=== PATIENT | male | born 1985 | race Caucasian/White ===

== ENCOUNTER 2019-01-01 19:53 | Emergency (ER) | payer SELFPAY ==
[2019-01-01 20:01] VITALS: BP 130/69; PULSE 90; RESP 20; TEMP 39.1; O2SAT 99
--- NOTE | 2019-01-01 20:19 | W.ED.GENAD ---
Discharge Plan Disposition Patient Disposition: HOME Condition: Stable Discharge Details Chief Complaint: Cellulitis Clinical Impression: Abscess of right forearm Primary Care Provider: Junior Nowak ED Provider: Martin Dallas Discharge Instructions Instructions: Abscess (ED) Additional Instructions: Return to the emergency department if you have redness spreading up to the upper arm, shortness of breath or abdominal pain return to the emergency department follow up with your primary care provider within a week Stand Alone Forms: Work Release Medical Decision Making 33 yo male with hx of drug abuse who states he has used 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 He was not aware of fevers but is febrile here, otherwise stable. His forearm diffusely is warm to touch and has a lesion where he injected that is firm and 2x2cm , no visible abscess on bedside u/s. Given IVDU and pain will obtain ct to eval for possible nec fasc or deep abscess pt's labs showed elevated wbc count, elevated lactate of 2.3, hd stable, remains febrile. CT shows larege abscess that is 5cm with diffuse forearm cellulitis. Ceftriaxone and vanco ordered for sepsis due to cellulitis. We have no beds here. Will contact surrounding hospitals I drained the abscess with return of significant purulent material. [place] has no beds, [facility] has no beds, [facility] transfer center called and they have no beds at any of their hopsitals and [facility] [place] beds. will try [facility]. HE remains HD stable Patient is not willing to go for transfer for IV abx and wants to go home. He has capacity to make his own decisions and understands the risks of worsening infection, loss of limb, and possible and disability, and is willing to accept these risks. He has no insurance so I am going to provide him with 5 days of oral abx and advised he should f/u with his pcp and return if he changes mind or is worsening in any way Differential Diagnosis nec fasc, abscess, cellulitis Imaging Data Radiologic Study: Attestation: I personally reviewed and interpreted this imaging study as follows: Imaging: CT Scan Radiologist's impression: IMPRESSION: Large abscess, measuring up to 5 cm, in the dorsal subcutaneous tissues of the distal forearm just posterior to the wrist, with associated diffuse forearm cellulitis. Lab Data Lab results reviewed: Yes I reviewed the patient's lab results. HPI General Mode of arrival: ambulatory. Date/Time Provider Initiated Documentation: 01/01/19 20:09. Limitations to Documentation: no limitations. Information obtained by: patient. History of Present Illness 33 year old M presents to the emergency department with the chief complaint of right arm redness, described as moderate, with intensity rated at 4. Patient started experiencing this day(s) (5) No relieving factors improve symptom(s), No exacerbating factors reported . Related Data Allergies Allergy/AdvReac Type Severity Reaction Status Date / Time No Known Allergies Allergy Unverified 01/01/19 20:08 General Stated Complaint: Cellulitis CUONG: 3 Review of Systems Review of Systems All systems reviewed & are unremarkable except as noted in HPI and below Constitutional Denies chills, Denies fever(s) and Denies weakness Cardiovascular Denies chest pain and Denies dyspnea Respiratory Denies cough and Denies dyspnea Gastrointestinal Denies abdominal pain, Denies nausea and Denies vomiting Neurologic Denies weakness [facility] Social History Smoking and Tabacco status: Current every day Exam Const General: no acute distress Orientation: alert HENMT Head: normal to inspection Ears: external ears normal General nose exam: external nose normal Mouth: moist mucous membranes Eyes General: appearance normal, both eyes and all related structures Neck Neck: normal visual inspection Resp Effort & Inspection: normal respiratory effort and able to speak in complete sentences Cardio Rate: regular rate Neuro General: alert and oriented x3 Extrem General: normal capillary refill Psych Mental Status: mental status grossly normal Course Vital Signs Temperature 39.1 C H 01/01/19 20:01 Pulse 90 01/01/19 20:01 Respiratory Rate 20 01/01/19 20:01 Blood Pressure 130/69 01/01/19 20:01 Pulse Oximetry 99 01/01/19 20:01 Temperature 39.1 C H 01/01/19 20:01 Temperature Source Temporal Artery Scan 01/01/19 20:01 Pulse 90 01/01/19 20:01 Respiratory Rate 20 01/01/19 20:01 Respiratory Effort 01/01/19 20:01 Blood Pressure 130/69 01/01/19 20:01 Blood Pressure Position Sitting 01/01/19 20:01 Pulse Oximetry 99 01/01/19 20:01 Oxygen Delivery Method Room Air 01/01/19 20:01 Oxygen Flow Rate 0 01/01/19 20:01 Pain Level 9 01/01/19 20:01 Lab/Test Results Lab/Test Results: 01/01/19 20:16 Blood Blood Culture - Pending 01/01/19 20:16 Blood Blood Culture - Pending Procedures Abscess I/D Site: Upper Extremity Side (if applicable): Right Local Anesthetic: Lidocaine 1% Amount of anesthesia used (mL): 7 (cc) Technique: Incised with #11 Blade Amount of fluid expressed (mL): 20 (cc) Irrigation: Yes Packing used?: None Complications: Pain
--- NOTE | 2019-01-01 20:23 | ED.GENADUL_ITS ---
Discharge Plan Disposition Patient Disposition: HOME Condition: Stable Discharge Details Chief Complaint: Cellulitis Clinical Impression: Abscess of right forearm Primary Care Provider: Junior Nowak ED Provider: Martin Dallas Discharge Instructions Instructions: Abscess (ED) Additional Instructions: Return to the emergency department if you have redness spreading up to the upper arm, shortness of breath or abdominal pain return to the emergency department follow up with your primary care provider within a week Stand Alone Forms: Work Release Medical Decision Making 33 yo male with hx of drug abuse who states he has used 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 He was not aware of fevers but is febrile here, otherwise stable. His forearm diffusely is warm to touch and has a lesion where he injected that is firm and 2x2cm , no visible abscess on bedside u/s. Given IVDU and pain will obtain ct to eval for possible nec fasc or deep abscess pt's labs showed elevated wbc count, elevated lactate of 2.3, hd stable, remains febrile. CT shows larege abscess that is 5cm with diffuse forearm cellulitis. Ceftriaxone and vanco ordered for sepsis due to cellulitis. We have no beds here. Will contact surrounding hospitals I drained the abscess with return of significant purulent material. [place] has no beds, [facility] has no beds, [facility] transfer center called and they have no beds at any of their hopsitals and [facility] has no beds. will try [facility]. HE remains HD stable Patient is not willing to go for transfer for IV abx and wants to go home. He has capacity to make his own decisions and understands the risks of worsening infection, loss of limb, and possible and disability, and is willing to accept these risks. He has no insurance so I am going to provide him with 5 days of oral abx and advised he should f/u with his pcp and return if he changes mind or is worsening in any way Differential Diagnosis nec fasc, abscess, cellulitis Imaging Data Radiologic Study: Attestation: I personally reviewed and interpreted this imaging study as follows: Imaging: CT Scan Radiologist's impression: IMPRESSION: Large abscess, measuring up to 5 cm, in the dorsal subcutaneous tissues of the distal forearm just posterior to the wrist, with associated diffuse forearm cellulitis. Lab Data Lab results reviewed: Yes I reviewed the patient's lab results. HPI General Mode of arrival: ambulatory . Date/Time Provider Initiated Documentation: 01/01/19 20:09 . Limitations to Documentation: no limitations . Information obtained by: patient . History of Present Illness 33 year old M presents to the emergency department with the chief complaint of right arm redness, described as moderate, with intensity rated at 4. Patient started experiencing this day(s) (5) No relieving factors improve symptom(s), No exacerbating factors reported . Related Data Allergies Allergy/AdvReac Type Severity Reaction Status Date / Time No Known Allergies Allergy Unverified 01/01/19 20:08 General Stated Complaint: Cellulitis CUONG: 3 Review of Systems Review of Systems All systems reviewed & are unremarkable except as noted in HPI and below Constitutional Denies chills, Denies fever(s) and Denies weakness Cardiovascular Denies chest pain and Denies dyspnea Respiratory Denies cough and Denies dyspnea Gastrointestinal Denies abdominal pain, Denies nausea and Denies vomiting Neurologic Denies weakness [facility] Social History Smoking and Tabacco status: Current every day Exam Const General: no acute distress Orientation: alert HENMT Head: normal to inspection Ears: external ears normal General nose exam: external nose normal Mouth: moist mucous membranes Eyes General: appearance normal, both eyes and all related structures Neck Neck: normal visual inspection Resp Effort & Inspection: normal respiratory effort and able to speak in complete sentences Cardio Rate: regular rate Neuro General: alert and oriented x3 Extrem General: normal capillary refill Psych Mental Status: mental status grossly normal Course Vital Signs Temperature 39.1 C H 01/01/19 20:01 Pulse 90 01/01/19 20:01 Respiratory Rate 20 01/01/19 20:01 Blood Pressure 130/69 01/01/19 20:01 Pulse Oximetry 99 01/01/19 20:01 Temperature 39.1 C H 01/01/19 20:01 Temperature Source Temporal Artery Scan 01/01/19 20:01 Pulse 90 01/01/19 20:01 Respiratory Rate 20 01/01/19 20:01 Respiratory Effort 01/01/19 20:01 Blood Pressure 130/69 01/01/19 20:01 Blood Pressure Position Sitting 01/01/19 20:01 Pulse Oximetry 99 01/01/19 20:01 Oxygen Delivery Method Room Air 01/01/19 20:01 Oxygen Flow Rate 0 01/01/19 20:01 Pain Level 9 01/01/19 20:01 Lab/Test Results Lab/Test Results: 01/01/19 20:16 Blood Blood Culture - Pending 01/01/19 20:16 Blood Blood Culture - Pending Procedures Abscess I/D Site: Upper Extremity Side (if applicable): Right Local Anesthetic: Lidocaine 1% Amount of anesthesia used (mL): 7 (cc) Technique: Incised with #11 Blade Amount of fluid expressed (mL): 20 (cc) Irrigation: Yes Packing used?: None Complications: Pain
[2019-01-01] MEDS: Normal Saline 1,000 ML 1000 ML IV (20:50)
[2019-01-01] MEDS: Normal Saline Flush 10 ML SYR IVP (20:50)
[2019-01-01 21:04] LABS: Abs Immature Grans 0.02 k/cumm (0.0-0.09); Absolute Basophil Count 0.02 k/cumm (0.0-0.2); Absolute Neutrophil Count 12.78 k/cumm (1.2-6.7); Basophils % 0.1; Eosinophils % 0.8; HCT 40.2 % (40.0-50.0); HGB 13.5 g/dL (13.5-17.5); Immature Grans % 0.1; Lymphocytes % 12.5; Mean Corp. HGB Concentration 33.6 g/dL (32.0-36.0); Mean Corpuscular Hemoglobin 29.3 pg (27.0-33.0); Mean Corpuscular Volume 87.2 fL (80-95); Mean Platelet Volume 11.6 fL (8.0-11.0); Monocytes % 6.6; Neutrophils % 79.9; Platelet Count 209 x1000/uL (130-400); RBC 4.61 m/cumm (4.50-6.00); White Blood Cell Count 15.99 k/cumm (4.4-10.8)
[2019-01-01 21:05] LABS: Lactate-non-spesis 2.3 mmol/l (0.6-1.4)
[2019-01-01 21:06] LABS: Absolute Eosinophil Count 0.13 k/cumm (0.0-0.7); Absolute Monocyte Count 1.06 k/cumm (0.11-0.7)
[2019-01-01] MEDS: Omnipaque 350 MG/ML 100 ML BTL IJ (21:13)
--- NOTE | 2019-01-01 21:15 | DI.CT_ITS ---
SYMPTOM/DIAGNOSIS: RIGHT ARM CELLULITIS, ? ABSCESS OR FREE AIR CT RIGHT UPPER EXTREMITY: CT scan of the right upper extremity was performed following the uneventful administration of intravenous contrast material. There is a 5 x 2.5 x 2.7 cm fluid collection in the subcutaneous tissues in the distal forearm just proximal to the wrist. There is an enhancing wall noted. This is most consistent with an abscess. The abscess lies superficial to the underlying musculature. The underlying musculature does not appear to be involved. There is also edema seen in the subcutaneous tissues predominantly in the dorsal and medial forearm extending proximally to about the mid upper arm. No other focal fluid collection is seen in the right upper extremity. The bones appear unremarkable. No radiographic findings to suggest osteomyelitis. No acute vascular abnormalities identified. IMPRESSION: 5 cm abscess on the dorsum of the distal forearm just proximal to the wrist. 2. Right upper extremity cellulitis
[2019-01-01 21:16] LABS: ALT 136 U/L (12-78); AST 46 U/L (15-37); Albumin 3.1 g/dL (3.4-5.0); Alkaline Phosphatase 100 U/L (46-116); Anion Gap 9.4 mmol/L (3-11); BUN 9 mg/dL (7-18); Bilirubin, Direct 0.18 mg/dL (0.00-0.20); Bilirubin, Total 0.5 mg/dL (0.2-1.0); CO2 27.6 mmol/L (21.0-32.0); CREATININE 0.87 mg/dL (0.70-1.30); Calcium 8.7 mg/dL (8.5-10.1); Chloride 97 mmol/L (98-107); Glucose 138 mg/dL (70-100); Magnesium 1.7 mg/dL (1.8-2.4); Potassium 3.5 mmol/L (3.5-5.1); Sodium 134 mmol/L (136-145)
[2019-01-01] MEDS: Ketorolac 15 MG/ML VIAL IVP (21:37)
[2019-01-01 21:45] VITALS: TEMP 39.3
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
[2019-01-01] MEDS: HYDROmorphone 2 MG/ML VIAL (22:23)
[2019-01-01] MEDS: VANCOMYCIN 1,000 MG in Normal Saline 250 ML 166.6666 MG IVPB (22:23)
[2019-01-01] MEDS: Sulfameth/Trimeth DS TAB 10 TAB PO (23:01)
[2019-01-01] MEDS: Amoxicillin 875/Clav. 125 TAB 10 TAB PO (23:01)
[2019-01-02 03:10] VITALS: BP 128/70; PULSE 92; RESP 18; TEMP 39; O2SAT 99
== END 2019-01-01 23:05 | disposition left against medical advice (07) ==
PROVIDERS: Emergency Provider Emergency Medicine; PCP Family Medicine
DX: L02.413 Cutaneous abscess of right upper limb (principal); L03.113 Cellulitis of right upper limb; S51.831A Puncture wound without foreign body of right forearm, initial encounter; W46.0XXA Contact with hypodermic needle, initial encounter; F11.10 Opioid abuse, uncomplicated
CPT/HCPCS: 10060; 36415; 80053; 80076; 87040; 87077; 96361; 96365; 96367; 96375; 99285; 73201; 83605; 83735; 85025; 87070; 87205; 99284; J1885; J3490

== ENCOUNTER 2019-06-08 11:45 | Emergency (ER) | payer MEDICAID, SELFPAY ==
[2019-06-08 11:50] VITALS: BP 149/102; PULSE 86; RESP 18; TEMP 37.1; O2SAT 99
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
[2019-06-08] MEDS: Cephalexin 500 MG CAP PO (13:18)
[2019-06-08 13:44] VITALS: BP 138/96; PULSE 78; RESP 18; TEMP 37.1; O2SAT 99
== END 2019-06-08 13:45 | disposition home or self-care (01) ==
PROVIDERS: Emergency Provider Physician Assistant; PCP Family Medicine
DX: L55.1 Sunburn of second degree (principal); X32.XXXA Exposure to sunlight, initial encounter; S90.32XA Contusion of left foot, initial encounter; W17.89XA Other fall from one level to another, initial encounter
CPT/HCPCS: 99283; 73650; 99284; E0114